=== PATIENT | male | born 1960 | race Two or more races ===

== ENCOUNTER 2019-07-18 06:01 | Inpatient (IN) | payer MEDICARE, MEDICAID ==
[~2019-07-18] VITALS: Ht 177.8 cm; Wt 67.1 kg
--- NOTE | 2019-07-18 06:14 | NUR ---
PT BIB RA FROM HOME W/ SON AT BEDSIDE WITH C/O LEFT LEG PAIN. PATIENT HAD AN UNWITNESS FALL AT HOME. SON HEARD THE PT SCREAMING AND WENT TO PICK HIM UP. PATIENT LEFT LAG IS EXTERNALLY ROTATED AND SHORTER THAN RIGHT LEG. PATIENT STATES HE IS UNABLE TO MOVE THE LEFT LEG, CAN WRIGGLE TOES. PEDAL PULSE PRESENT,STRONG, AND EQUAL BILATERALLY. AAOX4. NO SOB. NOT IN ANY DISTRESS. CONNECTED TO MONITOR.
[2019-07-18] MEDS ORDERED: MORPHINE SULFATE INJ 4 MG/ML DISP.SYRIN ONE (06:19)
[2019-07-18] MEDS ORDERED: ONDANSETRON HCL/PF 4 MG/2 ML VIAL ONE (06:19)
--- NOTE | 2019-07-18 06:22 | NUR ---
BLOOD COLLECTED AND SENT TO LAB
[2019-07-18] MEDS ORDERED: ONDANSETRON HCL/PF 4 MG/2 ML VIAL IVP ONE (06:30)
[2019-07-18] MEDS ORDERED: MORPHINE SULFATE INJ 2 MG/ML DISP.SYRIN IV ONE (06:30)
[2019-07-18 06:35] LABS: BASOPHILS % (AUTO) 0.5 % (0.0-2.0); EOSINOPHILS % (AUTO) 0.1 % (0.0-6.0); HEMATOCRIT 27 % (39-51); HEMOGLOBIN 9.1 g/dL (13.5-17.5); LYMPHOCYTES # (AUTO) 1.7 /CMM (0.8-4.8); LYMPHOCYTES % (AUTO) 28.7 % (20.0-44.0); MEAN CORPUSCULAR HGB CONC 34 g/dl (31.0-36.0); MEAN CORPUSCULAR VOLUME 109 fL (80-96); MONOCYTES # (AUTO) 0.4 /CMM (0.1-1.30); MONOCYTES % (AUTO) 7.1 % (2.0-12.0); NEUTROPHILS # (AUTO) 3.8 /CMM (1.8-8.9); NEUTROPHILS % (AUTO) 63.6 % (43.0-81.0); PLATELET COUNT (AUTO) 65 /CMM (150-450); RED BLOOD CELL COUNT(AUTO) 2.45 MIL/uL (4.5-6.0)
[2019-07-18 06:44] LABS: ALBUMIN 3.1 g/dL (3.4-5.0); BILIRUBIN,DIRECT 0.2 mg/dL (0.0-0.2); BILIRUBIN,TOTAL 0.6 mg/dL (0.2-1.0); CREATININE 0.5 mg/dL (0.6-1.3); POTASSIUM 4.5 mmol/L (3.5-5.1); TOTAL PROTEIN, SERUM 7.7 g/dL (6.4-8.2)
--- NOTE | 2019-07-18 06:54 | NUR ---
CIGAR BANDER HAND AT BEDSIDE FOR XRAY
[2019-07-18 07:09] LABS: LYMPHOCYTES % (MANUAL) 24 % (16-48); MONOCYTES % (MANUAL) 4 % (0-11.0); NEUTROPHILS % (MANUAL) 72 (42-76)
--- NOTE | 2019-07-18 07:26 | NUR ---
ASSESSED PT ON BED AWAKE AND ALERT, NOT IN RESPIRATORY DISTRESS, V/S STABLE, KEPT RESTED AND COMFORTABLE, AWAITING ROOM FOR ADMISSION TO MED SURG FLOOR.
[2019-07-18] MEDS ORDERED: HYDROCODONE/APAP 5/325MG 1 EACH TABLET PO PRN (07:30)
[2019-07-18] MEDS ORDERED: Z GUARD REMEDY 2 OZ OINT TP PRN (07:30)
[2019-07-18] MEDS ORDERED: ZOLPIDEM TARTRATE 5 MG TABLET PO PRN (07:30)
[2019-07-18] MEDS ORDERED: MAG HYDROX/AL HYDROX/SIMETH 30 ML UDC PO PRN (07:30)
[2019-07-18] MEDS ORDERED: ONDANSETRON HCL/PF 4 MG/2 ML VIAL IVP PRN (07:30)
--- NOTE | 2019-07-18 07:40 | NUR ---
CALLED PATIENT SERVICES MANAGER FOR BED, WAITING FOR CALL BACK.
--- NOTE | 2019-07-18 07:41 | NUR ---
ROOM GIVEN 117-1
--- NOTE | 2019-07-18 07:49 | NUR ---
REPORT GIVEN TO BENITO HARO FOR MARIA FERNANDA.
--- NOTE | 2019-07-18 07:51 | NUR ---
CALLED ORTHO BROOM MAN, WAITING FOR CALL BACK FROM DR. DOZIER.
--- NOTE | 2019-07-18 07:58 | NUR ---
TECH AT BEDSIDE FOR US.
--- NOTE | 2019-07-18 08:30 | NUR ---
RN MS NOTES PATIENT A/0 X4 PATIENT IS SAMMARINESE SPEAKING . PATIENT IS ON ROOM AIR AND SATURATING AT 100% PATIENT SHOWS NO S/S OF RESPIRATORY DISTRESS. PATIENT LUNGS A CLEAR THOUGHT OUT . HEART SOUNDS HEARD S1/S2 . PATIENT HAS BILATERAL RASH ON THE LOWER LEGS . PATIENT LEFT THIGH HAS A FRACTURE . PATIENT SHOWS NO SIGNS OF SOB. PATIENT COMPLAINED OF PAIN 2/10 . FAMILY AT BED SIDE . FAMILY INFORMED ABOUT TREATMENT PLAN AND CONSENT OF PROCEDURE.
[2019-07-18 09:57] LABS: IRON, SERUM 79 ug/dl (50-175); TOTAL IRON BINDING CAPACITY 191 ug/dl (250-450)
[2019-07-18 11:18] LABS: CHOLESTEROL 152 mg/dL (<200); HDL CHOLESTEROL 47 mg/dL (40-60); LDL 85 mg/dL (0-99); MAGNESIUM 1.8 mg/dL (1.8-2.4); TRIGLYCERIDES 65 mg/dL (30-150)
[2019-07-18] MEDS: MORPHINE SULFATE INJ 2 MG/ML DISP.SYRIN IV PRN ×3 (12:01→19:09)
[2019-07-18] MEDS: IV NS 0.9% 1,000 ML IV PRN (12:02)
--- NOTE | 2019-07-18 13:30 | NUR ---
BENITO MS NOTES ALL CONSENTS SIGNED BY DAVE RODRÍGUEZ .- [phone] . FATHER TOLD SON TO SIGN PAPER WORK.
[2019-07-18 16:00] VITALS: BP 148/75
[2019-07-18] MEDS: CHLORDIAZEPOXIDE HCL 25 MG CAPSULE PO SCH ×2 (19:00→20:48)
--- NOTE | 2019-07-18 19:00 | NUR ---
RN MS NOTES PATIENT EXPERIENING TREMORS ON THE HANDS . PATIENT IS FACE IS FLUSH WITH REDNESS. ATTENDING KENNEL AIDE NOTIFED OF PATIENT EXPERIENCING ALCOHOL WITHDRAWAL. SON STATED THAT FATHER DRINKS ABOUT 4-5 CASES OF BEER DAILY.
--- NOTE | 2019-07-18 19:30 | NUR ---
HELIARC WELDER NOTES ENDORSED TP PM SHIFT PATIENT A/OX4 PATIENT SHOWS NO SOB, NO S/S OF ACUTE RESPIRATORY DISTRESS. PATIENT IS AWARE OF PLAN OF CARE. SAFETY MAINTAINED. BED LOCKED AND LOWEST POSTION . CALL LIGHT WITH IN REACH, 2 X RIALS UP
[2019-07-18 20:10] VITALS: BP 122/74
--- NOTE | 2019-07-18 20:15 | NUR ---
RN OPENING NOTES 2014 RECEIVED REPORT FOR PATIENT LATE AT 2008 FROM BENITO HARO. PATIENT IS A/O X 4, COMORAN SPEAKING MAINLY. ABLE TO EXPRESS NEEDS. PATIENT TOLERATING ROOM AIR WELL. NO SIGNS OF RESPIRATORY DISTRESS. NO SHORTNESS OF BREATH NOTED. PATIENT DENIES PAIN AT THIS TIME. IV SITE INTACT, PATENT, IVF RUNNING WELL, NO SIGNS OF INFILTRATION/INFECTION. SAFETY PREACAUTIONS IMPLEMENTED; CALL LIGHT WITHIN REACH, BED LOCKED, BED LOWEST POSITION, SIDE RAILS UP X2. WILL CONTINUE TO MONITOR.
--- NOTE | 2019-07-18 20:46 | NUR ---
RN NOTES 6 AM NURSE DID NOT ADMINISTER 1900 LIBRIUM DOSE. WILL ADMINISTER LIBRIUM DOSE FOR 2100.
[2019-07-18 23:12] LABS: FERRITIN 1585 ng/mL (8-388); THYROID STIMULATING HORMONE 3.168 uIU/mL (0.358-3.74)
[2019-07-19] VITALS (20 sets, daily range): BP systolic 123–180; BP diastolic 54–89
[2019-07-19] MEDS: MORPHINE SULFATE INJ 2 MG/ML DISP.SYRIN IV PRN ×3 (01:26→16:13)
[2019-07-19] MEDS: IV NS 0.9% 1,000 ML IV PRN (01:32)
[2019-07-19] MEDS: LORAZEPAM INJ 2 MG/ML VIAL IV PRN ×2 (04:14→22:39)
[2019-07-19] MEDS: CHLORDIAZEPOXIDE HCL 25 MG CAPSULE PO SCH ×3 (05:18→21:12)
--- NOTE | 2019-07-19 06:40 | NUR ---
RN CLOSING NOTES PATIENT REMAINS IN BED, ASLEEP, EASILY AROUSABLE TO NAME. NO SIGNS OF RESPIRATORY DISTRESS. NO SHORTNESS OF BREATH NOTED. NO COMPLAINTS OF PAIN AT THIS TIME. PATIENT NPO SINCE MIDNIGHT. SAFETY PRECAUTIONS REMAIN IMPLEMENTED. CALL LIGHT WITHIN REACH. WILL CONTINUE TO MONITOR AND THEN WILL ENDORSE TO DAYSHIFT NURSE FOR CONTINUITY OF CARE.
[2019-07-19 07:13] LABS: BASOPHILS % (AUTO) 0.1 % (0.0-2.0); HEMATOCRIT 21 % (39-51); HEMOGLOBIN 7.1 g/dL (13.5-17.5); LYMPHOCYTES # (AUTO) 0.6 /CMM (0.8-4.8); LYMPHOCYTES % (AUTO) 6.8 % (20.0-44.0); MEAN CORPUSCULAR HGB CONC 35 g/dl (31.0-36.0); MEAN CORPUSCULAR VOLUME 109 fL (80-96); MONOCYTES # (AUTO) 0.8 /CMM (0.1-1.30); MONOCYTES % (AUTO) 8.4 % (2.0-12.0); NEUTROPHILS # (AUTO) 7.9 /CMM (1.8-8.9); NEUTROPHILS % (AUTO) 84.7 % (43.0-81.0); PLATELET COUNT (AUTO) 54 /CMM (150-450); WHITE BLOOD COUNT (AUTO) 9.4 K/uL (4.3-11.0)
--- NOTE | 2019-07-19 07:15 | NUR ---
MS RN OPENING NOTE: RECEIVED PATIENT IN BED. AWAKE, ALERT AND ORIENTED X4. NPO SINCE MIDNIGHT FOR UPCOMING SURGERY SCHEDULED. PATIENT IS AWARE AND CONSENT FORMS HAVE BEEN SIGNED BEFOREHAND. TOLERATING ROOM AIR, NO SOB, NOT IN DISTRESS. IV SITE RAC G18, SITE CLEAD, DRY AND PATENT. WITH NS @ 75ML/HR INFUSING WELL. NO PAIN NOTED NOR REPORTED. CALL LIGHT IN REACH, SIDE RAILS UP, BED LOCKED, LOW AND AT SEMI-DORAN'S POSITION. WILL CONTINUE TO MONITOR.
[2019-07-19 07:17] LABS: RED BLOOD CELL COUNT(AUTO) 1.89 MIL/uL (4.5-6.0)
[2019-07-19 07:37] LABS: CALCIUM, SERUM 8.4 mg/dL (8.5-10.1); CREATININE 0.5 mg/dL (0.6-1.3); MAGNESIUM 1.8 mg/dL (1.8-2.4); PHOSPHORUS 2.4 mg/dL (2.5-4.9); POTASSIUM 4.7 mmol/L (3.5-5.1)
[2019-07-19] MEDS ORDERED: Folic acid 1 MG in IV D5W 50 ML IV SCH (08:00)
[2019-07-19] MEDS ORDERED: Thiamine 100 MG in IV D5W 50 ML IV SCH (08:00)
[2019-07-19] MEDS ORDERED: Sodium Phosphate 7.5 MMOL in IV D5W 100 ML IV ONE (11:00)
--- NOTE | 2019-07-19 13:57 | NUR ---
patient OR schedule reschedule tommorow r/t low h/h and platelet,family made aware,
--- NOTE | 2019-07-19 13:58 | NUR ---
valerie asif also notified and nursing sup,and OR.
[2019-07-19 14:06] LABS: *SPE A/G RATIO 0.8 (0.7-1.7); *SPE ALBUMIN 3.1 g/dL (2.9-4.4); *SPE ALPHA-1-GLOBULIN 0.3 g/dL (0.0-0.4); *SPE ALPHA-2-GLOBULIN 0.6 g/dL (0.4-1.0); *SPE BETA GLOBULIN 1.3 g/dL (0.7-1.3); *SPE M-SPIKE Not Observed g/dL (Not Observed); *SPEGAMMA GLOBULIN 1.9 g/dL (0.4-1.8)
--- NOTE | 2019-07-19 14:39 | NUR ---
valerie asif also notified that per dr. cook hgb need to be 9 and platelet need to be 100k in order to do surgery otherwise need to be transferred.case management made aware.
[2019-07-19] MEDS: ACETAMINOPHEN 325 MG TABLET PO PRN (16:13)
--- NOTE | 2019-07-19 16:22 | NUR ---
PATIENT TEMP 101.6 ,HR 128 PRIOR TRANSFUSION KATE WADE NOTIFIED ,ORDERED TO GIVE TYLENOL AND STILL OK TO GIVE PLATELT.
--- NOTE | 2019-07-19 17:30 | NUR ---
m/s track rider: notes 2 units of platelets completed with no a/r noted. afebrile (98.5 O). family remains at bedside. will continue to monitor.
--- NOTE | 2019-07-19 17:41 | NUR ---
valerie asif,case management karri and nursing sup karri notified dr. cook wants transferred patient to tertiary hospital high risk for surgery.
--- NOTE | 2019-07-19 17:42 | NUR ---
jack uribe hold on giving PRBC FOR NOW.
[2019-07-19 18:21] LABS: BASOPHILS % (AUTO) 0.4 % (0.0-2.0); LYMPHOCYTES # (AUTO) 1.2 /CMM (0.8-4.8); MEAN CORPUSCULAR HGB CONC 36 g/dl (31.0-36.0); MEAN CORPUSCULAR VOLUME 108 fL (80-96); MONOCYTES # (AUTO) 0.9 /CMM (0.1-1.30); MONOCYTES % (AUTO) 9.3 % (2.0-12.0); NEUTROPHILS # (AUTO) 7.1 /CMM (1.8-8.9); NEUTROPHILS % (AUTO) 77.3 % (43.0-81.0); PLATELET COUNT (AUTO) 122 /CMM (150-450); WHITE BLOOD COUNT (AUTO) 9.1 K/uL (4.3-11.0)
[2019-07-19 18:29] LABS: RED BLOOD CELL COUNT(AUTO) 1.61 MIL/uL (4.5-6.0)
[2019-07-19 18:31] LABS: HEMOGLOBIN 6.2 g/dL (13.5-17.5)
[2019-07-19 18:32] LABS: HEMATOCRIT 17 % (39-51)
--- NOTE | 2019-07-19 19:14 | NUR ---
RN NOTE: BLOOD TRANSFUSION STARTED.
--- NOTE | 2019-07-19 19:15 | NUR ---
MS RN NOTE: TRANSFUSION OF 1 UNIT PRBC STARTED. INFORMED PATIENT AND FAMILY OF S/SX OF ADVERSE REACTIONS TO REPORT ON, UNDERSTOOD AND VERBALIZED UNDERSTANDING. TESSA WADE NP AWARE OF BRUISE SITE ON PATIENT'S INGUINAL AREA AND WILL MONITOR CLOSELY FOR ANY CHANGES.
[2019-07-19 19:16] LABS: BAND % (MANUAL) 7 % (0.0-5.0); LYMPHOCYTES % (MANUAL) 13 % (16-48); MONOCYTES % (MANUAL) 10 % (0-11.0); NEUTROPHILS % (MANUAL) 70 (42-76)
--- NOTE | 2019-07-19 19:20 | NUR ---
RN NOTES RECEIVED PATIENT AWAKE, ALERT ORIENTED X4, GEORGIAN SPEAKING, UNDERSTANDS LITTLE MALAGASY, NO SIGNS OF ACUTE RESPIRATORY DISTRESS NOTED, IV ACCESS ON HIS RIGHT AC G#18 INTACT AND PATENT, 1 UNIT OF PRBC ONGOING STARTED BY AM NURSE STEVE, SAFETY MEASURES IN PLACE, ASPIRATION PRECAUTION EMPHASIZE, BED IN L;OW LOCKED POSITION, FAMILY AT BEDSIDE AT THIS TIME, WILL CONTINNUE TO MONITOR ACCORDINGLY.
--- NOTE | 2019-07-19 19:25 | NUR ---
MS RN CLOSING NOTE: PATIENT IN BED. AWAKE, ALERT AND ORIENTED X4 WITH FAMILY IN THE ROOM. DIET RESUMED. AWAITING ORDERS FOR SURGERY. TOLERATING ROOM AIR, NO SOB, NOT IN DISTRESS. IV SITE RAC AND LAC G18, SITE CLEAN, DRY AND PATENT. CURRENTLY UNDERGOING BLOOD TRANSFUSION ON LAC OF 1 UNIT OF PRBC @ 50ML/HR INFUSING AND TOLERATING WELL. PATIENT AND FAMILY INFORMED OF S/SX OF ADVERSE REACTIONS TO REPORT ON. PAIN NOTED NOR REPORTED. CALL LIGHT IN REACH, SIDE RAILS UP, BED LOCKED, LOW AND AT SEMI-DORAN'S POSITION. ENDORSED TO ONCOMING SHIFT FOR MARIA FERNANDA.
--- NOTE | 2019-07-19 19:29 | NUR ---
RN NOTE: TRANSFUSION RATE INCREASED TO 100ML/HR PATIENT HAD NO ADVERSE REACTION TO THE FIRST 15 MINUTES AND TOLERATED WELL. INFORMED ONCOMING NURSE OF SITUATION.
[2019-07-20] VITALS (7 sets, daily range): BP systolic 137–170; BP diastolic 72–91
--- NOTE | 2019-07-20 02:20 | NUR ---
RN NOTES STATUS POST 2ND UNIT PRBC, TRANSFUSED WITHOUT ANY ADVERSE REACTION, PATIENT RESTING COMFORTABLY, NO SIGNS OF ACUTE RESPIRATORY OR CARDIAC DISTRESS, AFEBRILE TEMP 98.4F/AXILLA, TELE MONITOR READS 110 -120, BP 168/87, SATING 100% ON ROOM AIR, ASLEEP EASILY AROUSABLE, SAFETY MEASURES IN PLACE, ALL NEEDS ANTICIPATED, WILL MONITOR ACCORDINGLY.
[2019-07-20] MEDS: IV NS 0.9% 1,000 ML IV PRN ×2 (03:30→13:05)
[2019-07-20] MEDS: CHLORDIAZEPOXIDE HCL 25 MG CAPSULE PO SCH ×2 (05:24→12:57)
--- NOTE | 2019-07-20 06:50 | NUR ---
RN NOTES RECEIVED A PHONE CALL FROM [facility]. SPOKE WITH SABINE ( DIRECT PHONE NUMBER IS [phone] ), RN IN TRANSFER UNIT OF [facility], TELLING THAT THEY WERE ABLE TO TALKED TO [facility] F[employer]ING COORDINATOR ANALI YESTERDAY 07/19/19 REGARDING TRANSFER ORDERED BY MD. BOSE, ACCORDING TO SABINE, THEIR ORTHOPEDIC SURGEON WANTED TO EXAMINE AND REVIEW THE IMAGING RESULTS OF THE BROKEN/FRACTURED/ OR AFFECTED SITE FIRST BEFORE ACCEPTING TRANSFER. IMAGING RESULTS SHOULD BE DOWNLOADED TO DISK AND THE ACTUAL DISK SHOULD BE MAILED VIA MAIN LINE STATION ENGINEER OR TRANSPORTED VIA CAB OR UBER TO THIS ADDRESS: [address] [id number] ATTENTION : TRANSFER CENTER TO [address] ([address]) [address] WILL ENDORSE TO AM NURSE TO CALL SABINE'S DIRECT LINE PROVIDED ABOVE ONCE DISK IS AVAILABLE AND MAILED OR TRANSPORTED TO THE ADDRESS PROVIDED ABOVE. CHARGE NURSE CORNELIA MADE AWARE OF THE CONVERSATION WITH SABINE OF [facility] TRANSFER UNIT.
[2019-07-20 06:57] LABS: BASOPHILS % (AUTO) 0.4 % (0.0-2.0); HEMATOCRIT 31 % (39-51); HEMOGLOBIN 10.6 g/dL (13.5-17.5); LYMPHOCYTES # (AUTO) 1.4 /CMM (0.8-4.8); LYMPHOCYTES % (AUTO) 19.7 % (20.0-44.0); MEAN CORPUSCULAR HGB CONC 35 g/dl (31.0-36.0); MEAN CORPUSCULAR VOLUME 102 fL (80-96); MONOCYTES # (AUTO) 0.8 /CMM (0.1-1.30); MONOCYTES % (AUTO) 11.2 % (2.0-12.0); NEUTROPHILS % (AUTO) 68.7 % (43.0-81.0); PLATELET COUNT (AUTO) 99 /CMM (150-450); RED BLOOD CELL COUNT(AUTO) 3.01 MIL/uL (4.5-6.0); WHITE BLOOD COUNT (AUTO) 7.3 K/uL (4.3-11.0)
[2019-07-20 07:11] LABS: APPEARANCE,URINE CLEAR (CLEAR); BILIRUBIN,URINE NEGATIVE (NEGATIVE); BLOOD, URINE NEGATIVE Ery/uL (NEGATIVE); COLOR,URINE YELLOW (YELLOW); KETONES,URINE NEGATIVE (NEGATIVE); LEUKOCYTE ESTERASE ,URINE NEGATIVE (NEGATIVE); NITRITE, URINE NEGATIVE (NEGATIVE); PH,URINE 6.5 (5.0-8.0); PROTEIN,URINE NEGATIVE (NEGATIVE); UGLUCOSE NEGATIVE (NEGATIVE)
[2019-07-20 07:26] LABS: CALCIUM, SERUM 8.8 mg/dL (8.5-10.1); CREATININE 0.5 mg/dL (0.6-1.3); PHOSPHORUS 1.6 mg/dL (2.5-4.9); POTASSIUM 3.7 mmol/L (3.5-5.1)
[2019-07-20 08:32] LABS: OSMOLALITY,URINE 181 mOS/kg (340-1090)
[2019-07-20] MEDS: FOLIC ACID 1 MG TABLET PO SCH ×2 (09:00→10:23)
[2019-07-20] MEDS: THIAMINE HCL 100 MG TABLET PO SCH ×2 (09:00→10:24)
[2019-07-20 09:47] LABS: URIC ACID 2.1 mg/dL (2.6-7.2)
[2019-07-20] MEDS ORDERED: Sodium Phosphate 7.5 MMOL in IV D5W 100 ML IV ONE (10:00)
--- NOTE | 2019-07-20 10:15 | NUR ---
rn note spoke with dr Faye and AYSE Perez, both okayed pt to resume diet, no schedule to perfom surgery, since pt is waiting to be transferred to another hospital, presum[facility] to [facility].
[2019-07-20 11:06] LABS: URINE SODIUM, RANDOM 27 mmol/l (40-220)
[2019-07-20] MEDS: MORPHINE SULFATE INJ 2 MG/ML DISP.SYRIN IV PRN ×3 (11:38→17:55)
--- NOTE | 2019-07-20 13:17 | NUR ---
rn note CD with Xray results given to [employer] [facility], , to FRANKO, ID # [phone] to bring to [facility].
[2019-07-20] MEDS: ACETAMINOPHEN 325 MG TABLET PO PRN (16:20)
--- NOTE | 2019-07-20 19:15 | NUR ---
rn note pt discharged to transfer to [facility] for surgery, report given to Essie OLIVER, rm [phone]. family aware. exit care done, discharge instructions provided, papers signed, telemetry box removed from patient, iv 18 g in left ac left in place, intact clean and dry. condom catheter left in place, pt was clean and dry. belonginig ;list signed and belongings provided to the son, Michele. left via ambulance in stable condition.
== END 2019-07-20 20:18 | DRG 534 ==
LOC: ER 06:03 → MEDSG1 08:14 → TELE1 07-19 19:10 → MEDSG1 07-20 17:01 → TELE1 07-20 18:09
PROVIDERS: ADMIT Nurse Practitioner Acute Care; ATTEND Nurse Practitioner Acute Care
PROC: 30233R1 Transfusion of Nonautologous Platelets into Peripheral Vein, Percutaneous Approach (ICD-10-PCS; principal; 2019-07-19)
PROC: 30233N1 Transfusion of Nonautologous Red Blood Cells into Peripheral Vein, Percutaneous Approach (ICD-10-PCS; 2019-07-19)
DX: S72.352A Displaced comminuted fracture of shaft of left femur, initial encounter for closed fracture (principal); E44.1 Mild protein-calorie malnutrition; E87.1 Hypo-osmolality and hyponatremia; D61.818 Other pancytopenia; F10.239 Alcohol dependence with withdrawal, unspecified; K70.9 Alcoholic liver disease, unspecified; W01.0XXA Fall on same level from slipping, tripping and stumbling without subsequent striking against object, initial encounter; Y92.002 Bathroom of unspecified non-institutional (private) residence as the place of occurrence of the external cause; D53.1 Other megaloblastic anemias, not elsewhere classified; F03.90 Unspecified dementia, unspecified severity, without behavioral disturbance, psychotic disturbance, mood disturbance, and anxiety; I25.10 Atherosclerotic heart disease of native coronary artery without angina pectoris; F17.200 Nicotine dependence, unspecified, uncomplicated; Y90.9 Presence of alcohol in blood, level not specified; S30.1XXA Contusion of abdominal wall, initial encounter; R26.9 Unspecified abnormalities of gait and mobility
CPT/HCPCS: 36415; 71045-TC; 73502; 80048-TC; 80061-TC; 80076-TC; 81000-TC; 82533; 82728-TC; 83540-TC; 83735-TC; 83935-TC; 84100-TC; 84155; 84165; 84300-TC; 84439-TC; 84443-TC; 84484-TC; 84550-TC; 85025-TC; 85730-TC; 86850-TC; 86921-TC; 87081-TC; 87086-TC; 93307-TC; A4349; A9563; G0378; J2060; J2270; J2405; J3411; J3490; J7030; J7050; J7060; P9016-BL; P9034-BL